=== PATIENT | male | born 1960 | race Two or more races ===

== ENCOUNTER 2016-08-07 16:56 | Emergency (ER) | payer SELFPAY ==
[~2016-08-07] VITALS: Ht 167.6 cm; Wt 63.5 kg
[2016-08-07 17:45] VITALS: BP 147/82
[2016-08-07] MEDS ORDERED: ROBAXIN-750750 MG PO (19:04)
[2016-08-07] MEDS ORDERED: IBUPROFEN600 MG ORAL (19:04)
[2016-08-07 19:12] VITALS: BP 145/80
[2016-08-07 19:14] VITALS: BP 145/80
--- NOTE | 2016-08-07 21:08 | Emergency Room Report ---
History of Present Illness General Chief Complaint: Multiple Trauma/Fall Source: Patient Present Illness HPI The pt is a 56 yo M presenting for back pain after falling off of a ladder. The pt states that he fell off of a ladder from approximately 3ft up onto his back. He denies hitting his head or LOC. pain is described as an 8/10 dull ache and both shoulders and does not radiate. He denies previous injury to these areas. He denies any weakness, numbness, or tingling of extremities. He denies other symptoms including N, V, HOOKER, dizziness, blurred vision, CP, SOB, fever, chills Allergies: Coded Allergies: No Known Allergies (Unverified , 08/07/16) Patient History Past Medical History: see triage record Pertinent Family History: none Reviewed Nursing Documentation: PMH: Agreed, PSxH: Agreed Nursing Documentation-PMH Past Medical History: No Stated History Review of Systems All Other Systems: negative except mentioned in HPI Physical Exam Vital Signs Date Time Temp Pulse Resp B/P Pulse Ox O2 Delivery O2 Flow Rate FiO2 08/07/16 17:01 98.1 66 15 143/84 97 Room Air Sp02 EP Interpretation: reviewed, normal General Appearance: no apparent distress, alert, GCS 15, non-toxic Head: normocephalic, atraumatic Eyes: bilateral eye PERRL, bilateral eye normal inspection ENT: hearing grossly normal, normal pharynx, no angioedema, normal voice Neck: full range of motion, supple/symm/no masses Respiratory: chest non-tender, lungs clear, normal breath sounds, no respiratory distress, no accessory muscle use, no wheezing, speaking full sentences Cardiovascular #1: regular rate, rhythm, no edema Musculoskeletal: normal range of motion, tender - Diffuse TTP across the upper thoracic region and shoulders. Full AROM of shoulders and neck. No step-offs. Neurologic: alert, oriented x3, responsive, motor strength/tone normal, sensory intact, normal gait, speech normal Psychiatric: judgement/insight normal, memory normal, mood/affect normal, no suicidal/homicidal ideation Skin: normal color, no rash, warm/dry, well hydrated Lymphatic: no adenopathy Medical Decision Making PA Attestation Dr. Jain is my supervising physician. Patient management was discussed with my supervising physician Diagnostic Impression: Primary Impression: Back contusion Qualified Codes: S20.229A - Contusion of unspecified back wall of thorax, initial encounter Additional Impression: Muscle strain ER Course The patient is a 56-year-old male presenting for shoulder and back pain after a fall Differential diagnoses considered but not limited to: Fracture, dislocation, contusion, strain, disc herniation, spinal injury, among others PE: vitals WNL. NAD Head NC/AT Diffuse TTP across the upper thoracic region and shoulders. Full AROM of shoulders and neck. No step-offs. There are abrasions across mid upper back. Normal gait. CN II-XII intact otherwise exam unremarkable All xrays unremarkable. Pt will be ID'ed home with prescription for motrin and robaxin. ER precautions given Other X-Ray Diagnostic Results Other X-Ray Diagnostic Results #1: X-Ray Ordered: T spine Date: August 07, 2016 EP Interpretation: Yes Findings: no fractures, no dislocation, no soft tissue swelling Number of Views: 3 PA Scribe Text I am acting as scribe for my supervising physician. My supervising physician's interpretation of the T spine xrays are there are no fractures, dislocations or soft tissue swelling. Other X-Ray Diagnostic Results #2: X-Ray Ordered: L shoulder Date: August 07, 2016 EP Interpretation: Yes Findings: no fractures, no dislocation, no soft tissue swelling Number of Views: 3 PA Scribe Text I am acting as scribe for my supervising physician. My supervising physician's interpretation of the L shoulder xrays are there are no fractures, dislocations or soft tissue swelling. Other X-Ray Diagnostic Results #3: X-Ray Ordered: R shoulder Date: August 07, 2016 EP Interpretation: Yes Findings: no fractures, no dislocation, no soft tissue swelling Number of Views: 3 PA Scribe Text I am acting as scribe for my supervising physician. My supervising physician's interpretation of the R shoulder xrays are there are no fractures, dislocations or soft tissue swelling. Last Vital Signs Date Time Temp Pulse Resp B/P Pulse Ox O2 Delivery O2 Flow Rate FiO2 08/07/16 19:14 97.9 70 18 145/80 100 Room Air Status: improved Disposition: HOME, SELF-CARE Condition: Improved Scripts Methocarbamol* (ROBAXIN-750*) 750 Mg Tablet 750 MG PO TID, #21 TAB 0 Refills Prov: ABI CONTRERAS 08/07/16 Ibuprofen* (MOTRIN*) 600 Mg Tablet 600 MG ORAL Q6H Y for For Pain, #30 TAB Prov: ABI CONTRERAS 08/07/16 Patient Instructions: Back Pain, Adult, Contusion, Muscle Strain Additional Instructions: I discussed my findings with the patient. All questions and concerns have been answered. Treatment and medication compliance have been addressed. I advised the patient that they need to follow up with PMD in 3-5 days. Return to ED if pain remains or worsens, numbness or tingling occurs, new rash is noticed, fever is noticed, or if needed for any reason. Patient verbalized understanding of discharge instructions. The patient was informed that he needs to return to the emergency department or seek immediate medical attention elsewhere if pain worsens or does not improve within 2-3 days. ABI CONTRERAS August 07, 2016 21:08
--- NOTE | 2016-08-08 11:35 | Diagnostic Imaging Report ---
Indication: PAIN Technique: 3 views of the right shoulder Comparison: none Findings: Positioning is slightly limited clinical on this, patient was in severe pain limiting positioning. No acute fractures. No dislocations. Joint spaces are preserved. Impression:Negative
--- NOTE | 2016-08-08 11:37 | Diagnostic Imaging Report ---
Indications: PAIN Technique: Two or 3 views of the thoracic spine Comparison: None Findings: There is minimal upper thoracic scoliotic deformity. Otherwise normal bony alignment there is bones appear somewhat osteoporotic. No acute fractures. No dislocations. Pedicles are intact. Disc spaces are preserved. There is minimal anterior degenerative proliferative change Impression: No acute process Possible osteoporotic change This agrees with the preliminary interpretation provided overnight by Dr. Torrez
--- NOTE | 2016-08-08 15:51 | Diagnostic Imaging Report ---
Indication: PAIN Technique: 3 views of the left shoulder Comparison: none Findings: Positioning is somewhat limited, as patient was in severe pain per technologist. No acute fractures. No dislocations. Joint spaces are preserved. Impression:Negative
== END 2016-08-07 19:15 | disposition home or self-care (01) ==
LOC: EMR 17:16
DX: S20.229A Contusion of unspecified back wall of thorax, initial encounter (principal); S29.012A Strain of muscle and tendon of back wall of thorax, initial encounter; W11.XXXA Fall on and from ladder, initial encounter; Y93.9 Activity, unspecified; Y99.9 Unspecified external cause status
CPT/HCPCS: 72070; 99284